=== PATIENT | male | born 1970 | race Hispanic/Latino ===

== ENCOUNTER 2022-06-29 10:22 | Emergency (ER) | payer OTHER ==
[~2022-06-29] VITALS: Ht 154.9 cm; Wt 68.0 kg
[2022-06-29 12:56] VITALS: BP 132/81
== END 2022-06-29 13:13 | disposition home or self-care (01) ==
LOC: EDH 10:22
DX: G89.29 Other chronic pain (principal); M54.9 Dorsalgia, unspecified; Z98.890 Other specified postprocedural states